=== PATIENT | female | born 1995 | race Caucasian/White ===

== ENCOUNTER 2021-09-03 11:02 | Emergency (ER) | payer OTHER ==
[~2021-09-03] VITALS: Ht 170.2 cm; Wt 59.9 kg
[~2021-09-03 11:02] MED LIST: CEPHALEXIN500 MG; GILTUSS TR TAB1 EACH PO; MAALOX ADVANCE355 ML PO; PEPCID40 MG PO; ZITHROMAX TRI-500 MG PO; ZYRTEC10 MG PO
== END 2021-09-03 13:55 | disposition home or self-care (01) ==
LOC: ER 11:02
DX: R07.89 Other chest pain (principal)

== ENCOUNTER 2022-07-29 12:44 | Outpatient (CLI) | payer OTHER | END 2022-07-29 13:17 | disposition home or self-care (01) | LOC: RAD 12:44 | DX: M99.01 Segmental and somatic dysfunction of cervical region (principal); M99.02 Segmental and somatic dysfunction of thoracic region; M99.03 Segmental and somatic dysfunction of lumbar region; M99.04 Segmental and somatic dysfunction of sacral region; M99.05 Segmental and somatic dysfunction of pelvic region ==

== ENCOUNTER → 2022-08-23 | Outpatient (CLI) | payer OTHER | END | disposition home or self-care (01) | LOC: MRI 11:51 | DX: R51.9 Headache, unspecified (principal) | CPT/HCPCS: 70551 ==

== ENCOUNTER 2022-10-06 12:43 | Outpatient (CLI) | payer OTHER | END 2022-10-06 13:01 | disposition home or self-care (01) | LOC: MRI 12:43 | PROVIDERS: ATTEND Physical Medicine & Rehabilitation | DX: M54.2 Cervicalgia (principal); M54.12 Radiculopathy, cervical region | CPT/HCPCS: 72141 ==

== ENCOUNTER 2023-02-24 10:10 | Emergency (ER) | payer OTHER ==
[~2023-02-24] VITALS: Ht 170.2 cm; Wt 58.1 kg
== END 2023-02-24 16:58 ==
LOC: ER 10:10
DX: R53.81 Other malaise (principal); M62.838 Other muscle spasm; R07.89 Other chest pain

== ENCOUNTER 2023-10-02 05:29 | Emergency (ER) | payer OTHER ==
[~2023-10-02] VITALS: Ht 170.2 cm; Wt 62.1 kg
[2023-10-02] MEDS ORDERED: KETOROLAC TROMETHAMINE 60 MG VIAL IM STA (06:25)
[2023-10-02 08:03] LABS: HEMATOCRIT 36.4 % (36.0-45.00); HEMOGLOBIN 12.9 g/dL (12.0-15.00); MEAN CELL VOLUME 88.2 fL (80.00-100.00); MEAN CORPUSCULAR HEMOGLOBIN 31.3 pg (27.00-32.0); MEAN CORPUSCULAR HGB CONC 35.4 g/dl (32.0-36.0); PLATELET COUNT 154 K/uL (150-450); RED BLOOD COUNT 4.12 M/uL (4.00-6.00); RED CELL DISTRIBUTION WIDTH 12.3 % (11.5-14.5)
[2023-10-02] MEDS ORDERED: DEXAMETHASONE SODIUM PHOSPHATE 4 MG/ML VIAL IM STA (08:47)
== END 2023-10-02 09:00 | disposition home or self-care (01) ==
LOC: ER 05:31
DX: J06.9 Acute upper respiratory infection, unspecified (principal); Z20.822 Contact with and (suspected) exposure to COVID-19